=== PATIENT | male | born 1975 | race Hispanic/Latino ===

== ENCOUNTER 2025-02-19 14:55 | Emergency (ER) | payer SELFPAY ==
[~2025-02-19] VITALS: Ht 182.9 cm; Wt 98.7 kg
[2025-02-19] MEDS ORDERED: CYCLOBENZAPRINE5 MG PO (19:16)
[2025-02-19] MEDS ORDERED: PREDNISONE20 MG PO (19:17)
[2025-02-19 19:32] VITALS: PULSE 57; RESP 16; TEMP 98.3; O2SAT 98
== END 2025-02-19 19:32 | disposition home or self-care (01) ==
LOC: FSED 15:10
DX: R51.9 Headache, unspecified (principal); M25.511 Pain in right shoulder; M79.605 Pain in left leg; M50.30 Other cervical disc degeneration, unspecified cervical region; M43.12 Spondylolisthesis, cervical region; V53.6XXA Passenger in pick-up truck or van injured in collision with car, pick-up truck or van in traffic accident, initial encounter; Y92.488 Other paved roadways as the place of occurrence of the external cause
CPT/HCPCS: 70450; 72125; 99284